=== PATIENT | female | born 2005 | race Caucasian/White ===

== ENCOUNTER 2024-08-07 15:28 | Emergency (ER) | payer SELFPAY ==
[~2024-08-07] VITALS: Ht 172.7 cm; Wt 69.0 kg
[2024-08-07 15:31] VITALS: BP 114/80; PULSE 107; RESP 18; TEMP 37.1; O2SAT 99
== END 2024-08-07 16:53 | disposition home or self-care (01) ==
LOC: ER 15:28
DX: S50.811A Abrasion of right forearm, initial encounter (principal); S80.812A Abrasion, left lower leg, initial encounter; Y08.89XA Assault by other specified means, initial encounter; Y93.89 Activity, other specified; Y92.89 Other specified places as the place of occurrence of the external cause; Y99.8 Other external cause status
CPT/HCPCS: 99283